=== PATIENT | male | born 1995 | race Two or more races ===

== ENCOUNTER 2019-09-09 20:40 | Emergency (ER) | payer SELFPAY ==
[~2019-09-09] VITALS: Ht 175.3 cm; Wt 73.0 kg
--- NOTE | 2019-09-09 21:07 | PHYS DOC ---
Adult General Chief Complaint Chief Complaint: Neck Pain [facility] HPI Patient is a 23 year old male who presents with neck pain this been ongoing since 7 AM. The patient reports the pain started while he is at work. Patient denies any fever. Patient reports his pain levels 8 out of 10 in severity and sharp. Complete ROS were reviewed and found to be within normal limits, except as documented in the HPI Physical Exam Physical Exam Constitutional: Well developed, well nourished, no acute distress, non-toxic appearance. [] Neck: Reduced range of motion, tenderness on palpation to trapezius muscle, trigger point noted on the left side of neck/shoulder. ] Neurologic: Alert and oriented X 3, normal motor function, normal sensory function, no focal deficits noted. [] Psychologic: Affect normal, judgement normal, mood normal. [] EKG EKG [] Radiology/Procedures Radiology/Procedures [] Course & Med Decision Making Course & Med Decision Making Pertinent Labs and Imaging studies reviewed. (See chart for details) The patient appears to have a musculoskeletal strain to his the left side of his trap muscle. Discussed with patient that heat and foam roller exercises could help patient neck pain. A medical screening exam was performed on this patient and the patient does not appear to be having a medical emergency. Her symptoms are not of sufficient severity and within reasonable medical probability it is unlikely the absence of immediate medical attention would result in placing the health of the individual (or, with respect to a woman, the health of the woman or her unborn child) in serious jeopardy, serious impairment to bodily functions, or serious dysfunction of any bodily organ or part. If , the patient is not in labor Dragon Disclaimer Dragon Disclaimer This electronic medical record was generated, in whole or in part, using a voice recognition dictation system. Departure Departure Impression: Primary Impression: Musculoskeletal pain Disposition: 01 HOME, SELF-CARE Condition: STABLE Patient Instructions: Musculoskeletal Pain Additional Instructions: Thank you for visiting [facility]. We appreciate you trusting us with your care. If any additional problems come up don't hesitate to return to visit us. Please follow up with your primary care provider so they can plan additional care if needed and know about the problem that you had. If symptoms worsen come back to the Emergency Department. Any concerning symptoms that start such as chest pain, shortness of air, weakness or numbness on one side of the body, running high fevers or any other concerning symptoms return to the ER. Scripts Orphenadrine Citrate (ORPHENADRINE CITRATE) 100 Mg Tablet.er 100 MG PO BID PRN for MUSCLE PAIN for 5 Days, #10 TAB.SR Prov: GORDON ADKINS APRN 09/09/19 GORDON ADKINS APRN Sep 09, 2019 21:07
[2019-09-09] MEDS ORDERED: ORPH100T PO (21:21)
[2019-09-09] MEDS ORDERED: ORPHENADRINE CITRATE 60 MG/2 ML VIAL. IM ONE (21:30)
[2019-09-09 21:50] VITALS: BP 120/71
== END 2019-09-09 21:50 | disposition home or self-care (01) ==
LOC: ER 20:40
DX: M54.2 Cervicalgia (principal); M25.512 Pain in left shoulder; M79.18 Myalgia, other site
CPT/HCPCS: 96372; 99283; J2360